=== PATIENT | female | born 1960 | race Caucasian/White ===

== ENCOUNTER 2023-10-10 09:59 | Emergency (ER) | payer MEDICARE ==
[~2023-10-10] VITALS: Ht 157.5 cm; Wt 52.2 kg
[2023-10-10] MEDS ORDERED: Ondansetron HCl 2 MG / ML 2ML Vial IV PRN (10:25)
[2023-10-10 11:02] LABS: BASOPHILS ABSOLUTE AUTO 0.02 K/mm3 (0.00-0.23); BASOPHILS PERCENT AUTO 0 % (0-2); EOSINOPHILS ABSOLUTE AUTO 0.08 K/mm3 (0.00-0.68); EOSINOPHILS PERCENT AUTO 1 % (0-6); Hematocrit 46.8 % (33.0-51.0); IMMATURE GRAN ABSOLUTE AUTO 0.02 K/mm3 (0.00-0.10); IMMATURE GRAN PERCENT AUTO 0 % (0-1); LYMPHOCYTES PERCENT AUTO 4 % (21-46); MONOCYTES ABSOLUTE AUTO 0.35 K/mm3 (0.16-1.47); MONOCYTES PERCENT AUTO 3 % (4-13); Mean Corpuscular HGB 29.6 pg (26.0-34.0); Mean Corpuscular HGB Conc 34.2 g/dL (31.5-36.5); Mean Corpuscular Volume 87 fL (80-100); Mean Platelet Volume 11.6 fL (9.1-12.4); NEUTROPHILS ABSOLUTE AUTO 9.65 K/mm3 (1.96-9.15); NEUTROPHILS PERCENT AUTO 92 % (41-73); Platelet Count 220 K/mm3 (150-400); RDW Standard Deviation 40.6 fL (35.1-46.3); Red Blood Cell Count 5.41 M/mm3 (3.80-5.20); White Blood Cell Count 10.52 K/mm3 (4.00-11.30)
[2023-10-10 11:23] LABS: Albumin, Blood 3.9 g/dL (3.4-5.0); Albumin/Globulin Ratio 1.2 (0.8-1.8); Bilirubin, Total 0.6 mg/dL (0.1-1.0); Bun/Creatinine Ratio 28.2 (12.0-20.0); Calcium, Blood 9.4 mg/dL (8.5-10.1); Creatinine, Blood 0.64 mg/dL (0.40-1.00); Globulin, Blood 3.3 g/dL (2.2-4.0); Total Protein, Blood 7.2 g/dL (6.4-8.2)
[2023-10-10] MEDS ORDERED: NS 1,000 ML IV SCH (11:30)
[2023-10-10] MEDS ORDERED: Prochlorperazine Edisylate 10 mg Vial IV ONE (13:30)
[2023-10-10] MEDS ORDERED: ONDA4ODT MM ×2 (13:49→14:08)
== END 2023-10-10 14:12 | disposition home or self-care (01) ==
LOC: ER 09:59
PROVIDERS: Emergency Medicine
DX: A08.4 Viral intestinal infection, unspecified (principal); E86.1 Hypovolemia
CPT/HCPCS: 76705; 80053; 84484; 85025; 93005; 93010; 96361; 96374; 96375; 99284-25; J0780; J2405; J7030

== ENCOUNTER 2025-01-15 12:08 | Emergency (ER) | payer MEDICARE ==
[~2025-01-15] VITALS: Ht 157.5 cm; Wt 57.0 kg
[~2025-01-15 12:08] MED LIST: ONDA4ODT MM
== END 2025-01-15 13:55 | disposition home or self-care (01) ==
LOC: ER 12:08
DX: R09.82 Postnasal drip (principal); F17.200 Nicotine dependence, unspecified, uncomplicated; Z59.89 Other problems related to housing and economic circumstances
CPT/HCPCS: 99283; A9270